=== PATIENT | female | born 1960 | race Caucasian/White ===

== ENCOUNTER 2020-05-12 06:12 | Day surgery (SDC) | payer OTHER ==
[2020-05-10 12:35] LABS: COVID AG,FIA SOURCE NASOPHARYNGEAL
[~2020-05-12] VITALS: Ht 175.3 cm; Wt 111.8 kg
[2020-05-12] MEDS ORDERED: LIDOCAINE 4% 50 ML SOLUTION TP ONE (06:13)
[2020-05-12] MEDS ORDERED: LIDOCAINE 2% 30 ML JELLY TP ONE (06:13)
[2020-05-12] MEDS ORDERED: ALBUTEROL SULFATE 2.5 MG/0.5 ML NEB SOLUTION NEB ONE (06:13)
[2020-05-12] MEDS ORDERED: BENZOCAINE 20% 50 MCG/SPRAY 57 GM TP ONE (06:13)
[2020-05-12] MEDS ORDERED: SODIUM CHLORIDE 0.9% 1,000 ML IV ONE (07:00)
[2020-05-12] MEDS ORDERED: SODIUM CHLORIDE 0.9% 1,000 ML ONE (07:00)
[2020-05-12] MEDS ORDERED: CHOL100044 PO (07:31)
[2020-05-12] MEDS ORDERED: PROM118S5 PO (07:31)
[2020-05-12] MEDS ORDERED: NYST30OI6 TP (07:31)
[2020-05-12] MEDS ORDERED: LOPE2 PO (07:31)
[2020-05-12] MEDS ORDERED: FAMO20 PO (07:31)
[2020-05-12] MEDS ORDERED: ALBU8HFA IH (07:31)
[2020-05-12] MEDS ORDERED: AMLO-258 PO (07:31)
[2020-05-12] MEDS ORDERED: IPRA4AER IH (07:31)
[2020-05-12] MEDS ORDERED: FLUT16H NASAL (07:31)
[2020-05-12] MEDS ORDERED: BUDE10.2 IH (07:31)
[2020-05-12] MEDS ORDERED: MONT-35 PO (07:31)
[2020-05-12] MEDS ORDERED: CETI-450 PO (07:31)
[2020-05-12] MEDS ORDERED: SIME125C PO (07:31)
[2020-05-12] MEDS ORDERED: MIDAZOLAM HCL 2 MG/2 ML VIAL ONE (07:57)
[2020-05-12] MEDS ORDERED: FentaNYL CITRATE PF 100 MCG/2 ML VIAL ONE (07:57)
[2020-05-12] MEDS ORDERED: MethylPREDNISolone SOD SUCC 125 MG/2 ML VIAL IVP ONE (09:15)
[2020-05-12] MEDS ORDERED: MethylPREDNISolone SOD SUCC 125 MG/2 ML VIAL ONE (09:49)
[2020-05-12] MEDS ORDERED: OXYGEN THERAPY IH SCH (20:00)
== END 2020-05-12 10:45 | disposition home or self-care (01) ==
LOC: SURGERY 06:12
PROVIDERS: ATTEND Internal Medicine Critical Care Medicine
DX: J38.4 Edema of larynx (principal); B37.0 Candidal stomatitis; J45.909 Unspecified asthma, uncomplicated; Z72.89 Other problems related to lifestyle; G47.33 Obstructive sleep apnea (adult) (pediatric); I10 Essential (primary) hypertension
CPT/HCPCS: 31623; 31624; 71045; 87015; 87070; 87101; 87205; 87206; 87220; 87426; 88108; 88184; 88185; 88312; C9803; J2250; J2930; J3010; J7030; J7613; Z7610

== ENCOUNTER 2022-02-04 06:19 | Day surgery (SDC) | payer OTHER ==
[~2022-02-04] VITALS: Ht 175.3 cm; Wt 103.6 kg
[~2022-02-04 06:19] MED LIST: ALBU8HFA IH; AMLO-258 PO; BUDE10.2 IH; CETI-450 PO; CHOL25TA4 PO; FAMO20 PO; FLUT16SP NASAL; IPRA4AER IH; LOPE-232 PO; MONT-35 PO; NYST30OI6 TP; PROM118S5 PO; SIME125C PO
[2022-02-04] MEDS ORDERED: SODIUM CHLORIDE 0.9% 1,000 ML IV ONE (06:30)
[2022-02-04 06:39] LABS: COVID AG,FIA SOURCE NASOPHARYNGEAL
[2022-02-04] MEDS ORDERED: AMOX1TAB15 PO (06:57)
[2022-02-04] MEDS ORDERED: NAPR220C15 PO (06:57)
[2022-02-04] MEDS ORDERED: CLAR250T39 PO (06:57)
[2022-02-04] MEDS ORDERED: PRED-729 PO (06:57)
[2022-02-04] MEDS ORDERED: SODIUM CHLORIDE 0.9% 1,000 ML ONE (07:12)
[2022-02-04] MEDS ORDERED: MIDAZOLAM HCL 2 MG/2 ML VIAL ONE (07:35)
[2022-02-04] MEDS ORDERED: FentaNYL CITRATE PF 100 MCG/2 ML VIAL ONE (07:36)
[2022-02-04 08:00] LABS: GLUCOMETER DEV NAME(LOC) SDS.; GLUCOSE,POINT OF CARE 97 MG/DL (70-110)
[2022-02-04] MEDS ORDERED: MethylPREDNISolone SOD SUCC 125 MG/2 ML VIAL IVP ONE (09:15)
== END 2022-02-04 10:30 | disposition home or self-care (01) ==
LOC: SURGERY 06:19
PROVIDERS: ATTEND Internal Medicine Critical Care Medicine
DX: J38.4 Edema of larynx (principal); B37.0 Candidal stomatitis; Z79.899 Other long term (current) drug therapy; Z20.822 Contact with and (suspected) exposure to COVID-19; F12.90 Cannabis use, unspecified, uncomplicated; F17.210 Nicotine dependence, cigarettes, uncomplicated; I10 Essential (primary) hypertension; E78.00 Pure hypercholesterolemia, unspecified; F41.9 Anxiety disorder, unspecified
CPT/HCPCS: 31623; 82962; 87101; 87220; 87070; 88108; 88305; 31624; 94640; 71045; 87015; 87426; 87206; J3010; J2250; J2930; J7030; C9803

== ENCOUNTER → 2023-11-07 | Day surgery (SDC) | payer OTHER ==
[~2023-11-07] VITALS: Ht 175.3 cm; Wt 104.5 kg
[~2023-11-07] MED LIST changes: +ALBU18HF12 IH; -ALBU8HFA IH; +ALBUTEROL SULFATE 2.5 MG/0.5 ML NEB SOLUTION NEB ONE; +AMOX1TAB15 PO; +BENZOCAINE 20% 50 MCG/SPRAY 57 GM TP ONE; +CLAR250T39 PO; +FentaNYL CITRATE PF 100 MCG/2 ML VIAL ONE; +MIDAZOLAM HCL 2 MG/2 ML VIAL ONE; +MethylPREDNISolone SOD SUCC 125 MG/2 ML VIAL ONE; +NAPR220C15 PO; +PRED-729 PO
[2023-11-07] MEDS: SODIUM CHLORIDE 0.9% 1,000 ML IV ONE (07:26)
[2023-11-07 09:10] VITALS: PULSE 64; RESP 15; O2SAT 100
[2023-11-07] MEDS: MethylPREDNISolone SOD SUCC 125 MG/2 ML VIAL IVP ONE (10:03)
== END | disposition home or self-care (01) ==
LOC: SURGERY 05:50
PROVIDERS: ATTEND Internal Medicine Critical Care Medicine
DX: R05.3 Chronic cough (principal); J38.4 Edema of larynx; B37.0 Candidal stomatitis; R04.2 Hemoptysis; R91.8 Other nonspecific abnormal finding of lung field; J98.8 Other specified respiratory disorders; J84.10 Pulmonary fibrosis, unspecified; J98.01 Acute bronchospasm; E78.00 Pure hypercholesterolemia, unspecified; F32.A Depression, unspecified; Z86.16 Personal history of COVID-19; Z87.891 Personal history of nicotine dependence; Z98.890 Other specified postprocedural states; Z79.899 Other long term (current) drug therapy
CPT/HCPCS: 31623; 87206; 87101; 87220; 87070; 88108; 31624; 94640; 71045; 87015; J3010; J2250; J2919; J7613